=== PATIENT | female | born 1960 | race Caucasian/White ===

== ENCOUNTER 2024-06-04 18:17 | Emergency (ER) | payer SELFPAY ==
[2024-06-04 18:20] VITALS: BP 163/93; PULSE 89; RESP 15; TEMP 37.1; O2SAT 98; BMI 22.6
--- NOTE | 2024-06-04 18:30 | ED_ITS ---
<Statement entered by Nacho Escalera MD - 06/04/24 22:42> I was consulted by the CHAPINCITO, and we discussed the complexity of the problems being addressed. I approved the treatment and management plan for this patient's care in the emergency department, thus performing a substantive portion of the medical decision making. Nacho Escalera MD, MEE, FACEP Discharge Plan Disposition Patient Disposition: Home, Self-Care Condition: Good Prescriptions Prescriptions: New amoxicillin-pot clavulanate 875-125 mg tablet 1 tab PO BID Qty: 20 0RF Referrals Follow up/Referrals: Jeanne Huynh [Primary Care Provider] - See instructions Activity Restrictions/Add. Instructions Additional Instructions/Restrictions: Follow-up with Dr. Steiner tomorrow as discussed. Return to ER for any worsening signs or symptoms as needed Clinical Impressions Clinical Impression: Mass of left submandibular region Print Language Print Language: Surinamese Discharge ED Provider: Nacho Escalera General Adult HPI General Chief complaint: Dental/Oral Stated complaint: infected tooth on left side of mouth Time Seen by Provider: 06/04/24 18:30 History of Present Illness HPI narrative: Patient presents for evaluation of left submandibular swelling. Patient has left submandibular swelling that has been present for several weeks. She was evaluated by [facility] today and given a referral to an oral maxillofacial surgeon. Somehow the patient ended up in our ER reportedly to get IV antibiotics . Patient does have a history of bilateral breast cancer status post chemotherapy only and took her last chemotherapy in February. She follows with Dr. Werner Crawford patient currently reports no dysphagia no difficulty swallowing breathing tasting. She reports it is tender but no fever chills hemoptysis hematochezia melena nausea vomit diarrhea. Of oncology in [place].. Related Data Previous Rx's ?Medication ?Instructions ?Recorded amoxicillin 875 mg-potassium 1 tab PO BID #20 tabs 06/04/24 clavulanate 125 mg tablet Allergies Allergy/AdvReac Type Severity Reaction Status Date / Time No Known Allergies Allergy Verified 06/04/24 21:27 [facility] Disclaimer: The information contained in this section may have been updated after the patient was seen, as this information can be updated by other users. Social History Smoking Status: Never smoker alcohol intake: never current occupational status: unemployed Travel in the last 8 weeks: None ROS Obtained: Yes Systems reviewed as appropriate & no additional complaints except as documented Physical Exam General General appearance: alert and in no apparent distress Expanded ENT Exam Teeth numbered Image: 2 1. Other (Teeth identified in her referral as needing to be pulled) Expanded Neck Exam Neck image: 2 1. Submandibular swelling and fullness feels very firm Respiratory Respiratory exam: Present normal lung sounds bilaterally Cardiovascular Cardiovascular exam: Present regular rate and normal rhythm Neurological Exam Neurological exam: Present alert and oriented X3 Medical Decision Making Medical Records Medical records reviewed: Yes I reviewed the patient's medical records. Shon Inquiry Pt receiving controlled substance: No Vital Signs: 06/04/24 18:20 06/04/24 21:36 Temperature 98.8 F 98 F Temperature Source Oral Oral Pulse Rate 82 Pulse Rate [Left Radial] 89 Respiratory Rate 15 18 Blood Pressure 185/95 H Blood Pressure [Right Arm] 163/93 H Blood Pressure Mean [Right Arm] 116 Blood Pressure Source [Right Arm] Automatic Cuff Blood Pressure Position [Right Arm] Sitting 02 Sat by Pulse Oximetry 98 Oxygen Delivery Method Room Air Room Air Lab Data Lab results reviewed: Yes I reviewed the patient's lab results. Lab Results 06/04/24 20:15: WBC 5.3, RBC 3.97 L, Hgb 13.1, Hct 39.8, MCV 100.3 H, MCH 32.9 H , MCHC 32.8, RDW 14.0, Plt Count 175, MPV 7.4, Neut % (Auto) 56.9, Lymph % (Auto) 34.0, [place] % (Auto) 3.9, Eos % (Auto) 4.5, Baso % (Auto) 0.7, Neut # (Auto) 3.0, Lymph # (Auto) 1.8, [place] # (Auto) 0.2, Eos # (Auto) 0.2, Baso # (Auto) 0.0, Sodium 139, Potassium 3.7, Chloride 109 H, Carbon Dioxide 25, Anion Gap 8.7, BUN 12, Creatinine 0.60, Estimated Creat Clear 50, Estimated GFR 101, Est GFR ( Amer) 122, Glucose 114 H, Calcium 9.4 06/04/24 20:15 06/04/24 20:15 Orders (Tests/Meds): ED MEDICATIONS Discontinued Medications Generic Name Dose Route Start Last Admin Trade Name Freq PRN Reason Stop Dose Admin Amoxicillin/Clavulanate Potassium 1 each 06/04/24 21:25 06/04/24 21:29 Amoxicillin/Clavulanate Potassium 875/125mg Tablet PO 06/04/24 21:26 1 each ONCE ONE Administration ORDERS Category Date Time Status BMP [Basic Metabolic Panel] Stat Lab 06/04/24 20:15 Completed CBC w/Auto Diff [Complete Blood Count Auto Diff] Stat Lab 06/04/24 20:15 Completed Medical Decision Narrative: In summary patient is a 3-year-old female who presents to the emergency department for evaluation of submandibular mass. Patient is hemodynamically stable upon arrival, afebrile. Physical exam is remarkable for submandibular fullness that appears to be a solid soft tissue mass as opposed to an abscess. It is well away from the area that was identified as being pulled which was molars 15 and 16. She does have some swelling that does cross the midline but has no airway compromise no difficulty in speaking no difficulty in eating and drinking.. Differential diagnosis includes Hugo angina versus sialadenitis versus malignancy versus abscess etc. Initial workup will be conducted with hematologic labs. I did order CT scan of the face and soft tissue of the neck however patient's are self-pay and consulted her oncologist Dr. Werner Sutton whom I spoke personally. My interpretation of her hematologic labs shows that she does not have any evidence of systemic infection and the remainder of her hematologic labs are nonactionable. I had an active discussion with both the patient and their oncologist and via patient directed discharge will in an over abundance of caution start the patient on oral antibiotics for the possibility of some sort of infection with first dose given here and he will evaluate them in the office to determine what imaging he might want to use for diagnosis. Given that patient is appropriate for discharge at this time. Critical Care Critical Care Time Critical Care Time: No
--- NOTE | 2024-06-04 19:23 | PC.NURSE ---
Pt has Port she is wanting accessed for abx tx
--- NOTE | 2024-06-04 19:25 | PC.NURSE ---
Don at bedside, IV abx not needed at this time
[2024-06-04 20:36] LABS: Basophils % 0.7 % (0.1-2.0); Eosinophils # 0.2 K/mm3 (0.0-0.4); Eosinophils % 4.5 % (0.1-12.0); Hematocrit 39.8 % (37.0-47.0); Hemoglobin 13.1 g/dL (12.2-16.2); Lymphocytes # 1.8 K/mm3 (0.7-4.5); Mean Corpuscular HGB Conc 32.8 g/dL (31.8-35.4); Mean Corpuscular Hemoglobin 32.9 pg (27.0-31.2); Mean Corpuscular Volume 100.3 fl (81-99); Mean Platelet Volume 7.4 fl (7.4-10.4); Monocytes # 0.2 K/mm3 (0.1-1.0); Monocytes % 3.9 % (1.7-9.3); Neutrophils % 56.9 % (37.0-80.0); Platelet Count 175 K/mm3 (142-424); Red Blood Count 3.97 M/mm3 (4.20-5.40); White Blood Count 5.3 K/mm3 (4.8-10.8)
[2024-06-04 20:41] LABS: Chloride 109 mmol/L (98-107); Potassium 3.7 mmoL/L (3.5-5.1); Sodium 139 mmol/L (136-145)
[2024-06-04 20:44] LABS: Anion Gap 8.7 mEq/L (5-15); Blood Urea Nitrogen 12 mg/dl (7-17); Carbon Dioxide 25 mmol/L (22.0-30.0); Creatinine Clearance Estimated 50 mL/min (50-200); Estimated Glomerular Filt Rate 101 ml/min (>60); GFR (African American) 122 ML/MIN (>60)
[2024-06-04 20:45] LABS: Calcium 9.4 mg/dl (8.4-10.2); Glucose 114 mg/dl (74-100)
--- NOTE | 2024-06-04 21:02 | PC.NURSE ---
Kamran Mohan on phone with family PCP, pt states they would like to leave and follow up with them in the morning. IV will be removed.
[2024-06-04] MEDS: AMOXICILLIN/CLAVULANATE POTASSIUM 875/125MG TABLET 1 EACH PO (21:29)
[2024-06-04 21:36] VITALS: BP 185/95; PULSE 82; RESP 18; TEMP 36.6; O2SAT 97
== END 2024-06-04 21:36 | disposition home or self-care (01) ==
PROVIDERS: Physician Assistant; Emergency Provider Student in an Organized Health Care Education/Training Program; PCP Nurse Practitioner Family
DX: R22.0 Localized swelling, mass and lump, head (principal); Z85.3 Personal history of malignant neoplasm of breast; Z92.21 Personal history of antineoplastic chemotherapy
CPT/HCPCS: 80048; 85025; 99283